=== PATIENT | male | born 1960 | race Caucasian/White ===

== ENCOUNTER 2018-02-26 11:15 | Day surgery (SDC) | payer OTHER ==
[~2018-02-26 11:15] MED LIST: Lactated Ringers 1,000 ML IV SCH; Midazolam 1 MG/ML 2 ML SDV ONE; Propofol 200 MG/20 ML SDV ONE; fentaNYL 100 MCG/2 ML SDV ONE
--- NOTE | 2018-02-26 11:41 | PCM.PREANE ---
Preanesthetic Assessment - Anesthesia/Transfusion/Family Hx Anesthesia History: Prior Anesthesia Without Reaction Family History of Anesthesia Reaction: No Transfusion History: No Prior Transfusion(s) Intubation History: Unknown - Review of Systems General: No Symptoms Pulmonary: No Symptoms Cardiovascular: No Symptoms Gastrointestinal: No Symptoms, Other (screening colonoscopy) Neurological: No Symptoms Other: Reports: None - Physical Assessment Height: 1.78 m Weight: 106.141 kg ASA Class: 2 Mental Status: Alert & Oriented x3 Airway Class: Mallampati = 2 Dentition: Reports: Normal Dentition Thyro-Mental Finger Breadths: 3 Mouth Opening Finger Breadths: 2 ROM/Head Extension: Full Lungs: Clear to Auscultation, Normal Respiratory Effort Cardiovascular: Regular Rate, Regular Rhythm - Allergies Allergies/Adverse Reactions: Allergies Allergy/AdvReac Type Severity Reaction Status Date / Time No Known Allergies Allergy Verified 02/23/18 10:36 - Blood Blood Available: No - Anesthesia Plan Pre-Op Medication Ordered: None - Acknowledgements Anesthesia Type Planned: MAC Pt an Appropriate Candidate for the Planned Anesthesia: Yes Alternatives and Risks of Anesthesia Discussed w Pt/Guardian: Yes Pt/Guardian Understands and Agrees with Anesthesia Plan: Yes PreAnesthesia Questionnaire HEENT History: Reports: None Cardiovascular History: Reports: Heart Murmur, High Cholesterol, Hypertension Respiratory History: Reports: Sleep Apnea Other Respiratory History: uses CPAP Gastrointestinal History: Reports: None Endocrine/Metabolic History: Reports: Obesity/BMI 30+ - Past Surgical History Head Surgeries/Procedures: Reports: None HEENT Surgical History: Reports: Tonsillectomy GI Surgical History: Reports: Colonoscopy (x2) - SUBSTANCE USE Smoking Status *Q: Former Smoker (quit 18 years ago) Tobacco Use Within Last Twelve Months: No Recreational Drug Use History: No - HOME MEDS Home Medications: Home Meds Aspirin [Halie Chewable] 81 mg PO DAILY 06/05/14 [History] amLODIPine [Norvasc] 10 mg PO DAILY 06/05/14 [History] atorvaSTATin [Lipitor] 40 mg PO BEDTIME 06/05/14 [History] Fish Oil/[place]-3 Fatty Acids [Fish Oil 1,000 MG] 3 tab PO DAILY 02/23/18 [ History] Psyllium Husk [Metamucil] 1 dose PO ASDIRECTED PRN 02/23/18 [History] - CURRENT (IN HOUSE) MEDS Current Meds: Current Medications Lactated Ringer's (Ringers, Lactated) 1,000 mls @ 125 mls/hr IV ASDIRECTED MARITZA Discontinued Medications Fentanyl (Sublimaze) Confirm Administered Dose 100 mcg .ROUTE .STK-MED ONE Stop: 02/26/18 09:14 Midazolam HCl (Versed 1 Mg/Ml) Confirm Administered Dose 2 mg .ROUTE .STK-MED ONE Stop: 02/26/18 09:14 Propofol (Diprivan 20 Ml) Confirm Administered Dose 200 mg .ROUTE .STK-MED ONE Stop: 02/26/18 09:14
[2018-02-26] MEDS ORDERED: Propofol 200 MG/20 ML SDV ONE (11:52)
--- NOTE | 2018-02-26 12:13 | PCM.OPNOTE ---
- General Post-Op/Procedure Note Date of Surgery/Procedure: 02/26/18 Operative Procedure(s): colonoscopy w bx Findings: see dict [id number] Pre Op Diagnosis: scrn colonoscopy Post-Op Diagnosis: colon polyp and diverticulosis Anesthesia Technique: Moderate Sedation Primary Surgeon: Frank Sandra Pathology: sent; 20cm, 30 cm, and cecal polyp size all 2 mm sessile polyps Complications: None Condition: Good
--- NOTE | 2018-02-26 12:36 | PCM48HPAN ---
Post Anesthesia Note - EVALUATION WITHIN 48HRS OF ANESTHETIC Vital Signs in Normal Range: Yes Patient Participated in Evaluation: Yes Respiratory Function Stable: Yes Airway Patent: Yes Cardiovascular Function Stable: Yes Hydration Status Stable: Yes Pain Control Satisfactory: Yes Nausea and Vomiting Control Satisfactory: Yes Mental Status Recovered: Yes Resp Rate: 15 - COMMENTS/OBSERVATIONS Free Text/Narrative:: no anesthesia problems
--- NOTE | 2018-02-26 12:47 | PCM48HPAN ---
Post Anesthesia Note - EVALUATION WITHIN 48HRS OF ANESTHETIC Vital Signs in Normal Range: Yes Patient Participated in Evaluation: Yes Respiratory Function Stable: Yes Airway Patent: Yes Cardiovascular Function Stable: Yes Hydration Status Stable: Yes Pain Control Satisfactory: Yes Nausea and Vomiting Control Satisfactory: Yes Mental Status Recovered: Yes Resp Rate: 15
--- NOTE | 2018-02-26 12:47 | OR ---
SURGEON: Frank Sandra MD DATE OF PROCEDURE: 02/26/2018 PREOPERATIVE DIAGNOSIS: Screening colonoscopy. POSTOPERATIVE DIAGNOSIS: Colon polyp. PROCEDURE PERFORMED: Colonoscopy with biopsy. PROCEDURE IN DETAIL: The patient was taken to the endoscopy room. A time out was called, patient identified, and procedure identified. Diprivan was then administrated. Patient went from awake to sleep, hearing doctor talking or door closing is normal. Perineum inspection and digital examination were then performed. A well- lubricated colonoscope was gently inserted through the rectum, advanced past the rectosigmoid junction, the descending colon, splenic flexure, transverse colon, hepatic flexure, ascending colon, arrived to the cecum. Cecum was identified as dictated in the finding. Then the scope was carefully withdrawn while attention was paid to the mucosal surface for any abnormality. Air will be sucked out during the scope withdrawal. At the rectum, retroflexed to examine any rectal diseases, fistula or hemorrhoids. During mucosal examination, biopsy performed. Patient tolerated procedure well. There were no intraoperative complications, and Dr. Sandra was present throughtout the whole procedure. FINDINGS: 1. The patient is easily sedated with THIRD MATE and Diprivan. The patient is soundly snoring. 2. Bowel prep was average. A large amount of liquid stool, requiring some irrigation. 3. The patient's colon is rather straight forward. Cecum indicated by ileocecal fold, one-to-one indentation, light emittance, and appendiceal orifice is not observed. Mucosa examined upon scope pulling out with constant irrigation. The patient has three small tiny 2 mm sessile polyp at distance 30 cm when the scope went in mean and at the cecum, so all three removed with cold biopsy forceps. Other than that, the patient also has mild diverticulosis on the left colon. No signs of diverticulitis. No inflammation, stricture, ulceration, AV malformation, bleeding, growth. The patient has mild internal hemorrhoids and no external hemorrhoids. The patient would benefit from repeat colonoscopy in 10 years from today or if clinically indicated otherwise. YOVANI / AGUILA /[id number] KAILYN
== END 2018-02-26 12:48 | disposition home or self-care (01) ==
LOC: MW.SDS 11:15
PROVIDERS: ATTEND Surgery
DX: Z12.11 Encounter for screening for malignant neoplasm of colon (principal); D12.0 Benign neoplasm of cecum; D12.4 Benign neoplasm of descending colon; K57.30 Diverticulosis of large intestine without perforation or abscess without bleeding; K64.8 Other hemorrhoids; I10 Essential (primary) hypertension; E66.9 Obesity, unspecified; Z68.33 Body mass index [BMI] 33.0-33.9, adult; E78.00 Pure hypercholesterolemia, unspecified; G47.33 Obstructive sleep apnea (adult) (pediatric); M25.569 Pain in unspecified knee; Z87.891 Personal history of nicotine dependence; Z79.82 Long term (current) use of aspirin; Z79.899 Other long term (current) drug therapy
CPT/HCPCS: 45380; J2250; J3010; J7120; 00811; 88305; J2704

== ENCOUNTER 2021-05-16 08:06 | Emergency (ER) | payer BC, OTHER ==
--- NOTE | 2021-05-16 08:07 | EDM.PDOC ---
ED HPI GENERAL MEDICAL PROBLEM - General Chief Complaint: Respiratory Problem Stated Complaint: COVID SYMTOMS Time Seen by Provider: 05/16/21 08:07 Source of Information: Reports: Patient History Limitations: Reports: No Limitations - History of Present Illness INITIAL COMMENTS - FREE TEXT/NARRATIVE: 61-year-old male presents for [id number] symptoms. Patient notes that his tested positive for Covid 1 week ago. Roughly 5 or 6 days ago patient began to feel symptomatic himself. Patient notes loss of taste and smell, mild nonproductive cough without chest pain or shortness of breath, nausea without vomiting, decreased oral intake secondary to nausea, generalized weakness and malaise. He denies fevers. He denies difficulty breathing. - Related Data Allergies Allergy/AdvReac Type Severity Reaction Status Date / Time No Known Allergies Allergy Verified 02/23/18 10:36 Home Meds: Home Meds amLODIPine [Norvasc] 10 mg PO DAILY 06/05/14 [History] atorvaSTATin [Lipitor] 40 mg PO BEDTIME 06/05/14 [History] Fish Oil/[place]-3 Fatty Acids [Fish Oil 1,000 MG] 3 tab PO DAILY 02/23/18 [Histor y] Psyllium Husk [Metamucil] 1 dose PO ASDIRECTED PRN 02/23/18 [History] Past Medical History HEENT History: Reports: None Cardiovascular History: Reports: Heart Murmur, High Cholesterol, Hypertension Respiratory History: Reports: Sleep Apnea Other Respiratory History: uses CPAP Gastrointestinal History: Reports: None Endocrine/Metabolic History: Reports: Obesity/BMI 30+ - Past Surgical History Head Surgeries/Procedures: Reports: None HEENT Surgical History: Reports: Tonsillectomy GI Surgical History: Reports: Colonoscopy ED ROS GENERAL - Review of Systems Review Of Systems: Comprehensive ROS is negative, except as noted in HPI. ED EXAM, GENERAL - Physical Exam Exam: See Below Exam Limited By: No Limitations General Appearance: Alert, WD/WN, No Apparent Distress Ears: Hearing Grossly Normal Throat/Mouth: Normal Voice, No Airway Compromise Head: Atraumatic, Normocephalic Neck: Normal Inspection Respiratory/Chest: No Respiratory Distress, Lungs Clear, Normal Breath Sounds, No Accessory Muscle Use Cardiovascular: Normal Peripheral Pulses, Regular Rate, Rhythm GI/Abdominal: Soft, Non-Tender Extremities: Normal Inspection Neurological: Alert, Normal Cognition, Normal Gait Psychiatric: Normal Affect, Normal Mood Skin Exam: Warm, Dry, Intact, Normal Color #1 Interpretation EKG Date: 05/16/21 Time: 09:04 Rhythm: NSR Rate (Beats/Min): 70 Jansen: Normal P-Wave: Present QRS: Normal ST-T: Normal QT: Normal ID/PQ Interval: 157 Comparison: NA - No Prior EKG EKG Interpretation Comments: no ischemic changes Course - Vital Signs Last Recorded V/S: Last Vital Signs Temp 100.6 F 05/16/21 09:42 Pulse 68 05/16/21 09:42 Resp 20 05/16/21 09:42 BP 100/60 05/16/21 09:42 Pulse Ox 94 L 05/16/21 09:42 - Orders/Labs/Meds Orders: Active Orders 24 hr Category Date Time Status EKG Documentation Completion [RC] STAT Care 05/16/21 08:41 Active Sodium Chloride 0.9% [Saline Flush] Med 05/16/21 08:41 Active 10 ml FLUSH ASDIRECTED PRN Sodium Chloride 0.9% [Saline Flush] Med 05/16/21 08:41 Active 2.5 ml FLUSH ASDIRECTED PRN Saline Lock Insert [OM.PC] Stat Oth 05/16/21 08:41 Ordered Medication Orders Sodium Chloride (Sodium Chloride 0.9% 10 Ml Syringe) 10 ml FLUSH ASDIRECTED PRN PRN Reason: Keep Vein Open Last Admin: 05/16/21 09:25 Dose: 10 ml Documented by: Admin: 05/16/21 09:21 Dose: 10 ml Documented by: Admin: 05/16/21 09:08 Dose: 10 ml Documented by: MERLYN Sodium Chloride (Sodium Chloride 0.9% 2.5 Ml Syringe) 2.5 ml FLUSH ASDIRECTED PRN PRN Reason: Keep Vein Open Last Admin: 05/16/21 09:08 Dose: 2.5 ml Documented by: MERLYN Labs: Laboratory Tests 05/16/21 05/16/21 05/16/21 Range/Units 09:15 09:15 09:15 WBC 5.31 (4.0-11.0) K/uL RBC 4.86 (4.50-5.90) M/uL Hgb 15.0 (13.0-17.0) g/dL Hct 43.3 (38.0-50.0) % MCV 89.1 (80.0-98.0) fL MCH 30.9 (27.0-32.0) pg MCHC 34.6 (31.0-37.0) g/dL RDW Std Deviation 43.4 (28.0-62.0) fl RDW Coeff of Juanis 13 (11.0-15.0) % Plt Count 196 (150-400) K/uL MPV 10.00 (7.40-12.00) fL Neut % (Auto) 75.2 (48.0-80.0) % Lymph % (Auto) 13.9 L (16.0-40.0) % [place] % (Auto) 10.7 (0.0-15.0) % Eos % (Auto) 0.0 (0.0-7.0) % Baso % (Auto) 0.2 (0.0-1.5) % Neut # (Auto) 4.0 (1.4-5.7) K/uL Lymph # (Auto) 0.7 (0.6-2.4) K/uL [place] # (Auto) 0.6 (0.0-0.8) K/uL Eos # (Auto) 0.0 (0.0-0.7) K/uL Baso # (Auto) 0.0 (0.0-0.1) K/uL Nucleated RBC % 0.0 /100WBC Nucleated RBCs # 0 K/uL Sodium 131 L (136-148) mmol/L Potassium 3.7 (3.5-5.1) mmol/L Chloride 96 L (98-107) mmol/L Carbon Dioxide 24.5 (21.0-32.0) mmol/L BUN 16 (7.0-18.0) mg/dL Creatinine 1.2 (0.8-1.3) mg/dL Est Cr Clr Drug Dosing 109.97 mL/min Estimated GFR (MDRD) > 60.0 ml/min Glucose 95 (74-106) mg/dL Lactic Acid 1.2 (0.4-2.0) mmol/L Calcium 8.0 L (8.5-10.1) mg/dL Magnesium 2.1 (1.8-2.4) mg/dL Total Bilirubin 0.6 (0.2-1.0) mg/dL AST 51 H (15-37) IU/L ALT 84 H (14-63) IU/L Alkaline Phosphatase 59 (46-116) U/L Troponin I < 0.050 (0.000-0.056) ng/mL C-Reactive Protein 1.90 H (0.00-0.90) mg/dL Total Protein 7.3 (6.4-8.2) g/dL Albumin 3.5 (3.4-5.0) g/dL Globulin 3.8 (2.6-4.0) g/dL Albumin/Globulin Ratio 0.9 (0.9-1.6) Meds: Medications Generic Name Dose Route Start Last Admin Trade Name Freq PRN Reason Stop Dose Admin Sodium Chloride 10 ml 05/16/21 08:41 05/16/21 09:25 Sodium Chloride 0.9% 10 Ml Syringe FLUSH 10 ml ASDIRECTED PRN Administration Keep Vein Open Sodium Chloride 2.5 ml 05/16/21 08:41 05/16/21 09:08 Sodium Chloride 0.9% 2.5 Ml Syringe FLUSH 2.5 ml ASDIRECTED PRN Administration Keep Vein Open Discontinued Medications Generic Name Dose Route Start Last Admin Trade Name Freq PRN Reason Stop Dose Admin Acetaminophen 1,000 mg 05/16/21 08:41 05/16/21 09:17 Acetaminophen 500 Mg Tab PO 05/16/21 08:42 1,000 mg ONETIME ONE Administration Sodium Chloride 1,000 mls @ 999 mls/hr 05/16/21 08:41 05/16/21 09:15 Normal Saline IV 05/16/21 09:41 999 mls/hr .Bolus ONE Administration Ketorolac Tromethamine 15 mg 05/16/21 08:41 05/16/21 09:23 Ketorolac 15 Mg/Ml Sdv IVPUSH 05/16/21 08:42 15 mg STAT STA Administration Ondansetron HCl 4 mg 05/16/21 08:41 05/16/21 09:20 Ondansetron 4 Mg/2 Ml Sdv IVPUSH 05/16/21 08:42 4 mg ONETIME ONE Administration - Re-Assessments/Exams Free Text/Narrative Re-Assessment/Exam: 05/16/21 09:01 Patient presents with symptoms suggestive of COVID-19. He notes that he did test negative last week, however, his is positive and he has all the same symptoms. Will defer Covid testing as we are on a hospital shortage of Covid tests and will assume that patient is likely positive. Will get basic labs, chest x-ray. Will give Tylenol, Toradol, Zofran, IV fluid bolus for symptomatic relief while working up. 05/16/21 10:16 Patient is feeling much better after IV fluids and medications. Will discharge with a short course of Zofran. Patient does have mildly elevated inflammatory markers and mild hyponatremia. Discussed return precautions at length. Departure - Departure Time of Disposition: 10:16 Disposition: Home, Self-Care 01 Condition: Good Clinical Impression: COVID-19 - Discharge Information Instructions: COVID-19: What to Do if You Are Sick - [facility] (09/14/2020) Referrals: Melo De Paz MD [Primary Care Provider] - Forms: ED Department Discharge Additional Instructions: The following information is given to patients seen in the emergency department who are being discharged to home. This information is to outline your options for follow-up care. We provide all patients seen in our emergency department with a follow-up referral. The need for follow-up, as well as the timing and circumstances, are variable depending upon the specifics of your emergency department visit. If you don't have a primary care physician on staff, we will provide you with a referral. We always advise you to contact your personal physician following an emergency department visit to inform them of the circumstance of the visit and for follow-up with them and/or the need for any referrals to a consulting specialist. The emergency department will also refer you to a specialist when appropriate. This referral assures that you have the opportunity for follow-up care with a specialist. All of these measure are taken in an effort to provide you with optimal care, which includes your follow-up. Under all circumstances we always encourage you to contact your private physician who remains a resource for coordinating your care. When calling for follow-up care, please make the office aware that this follow-up is from your recent emergency room visit. If for any reason you are refused follow-up, please contact the [facility] Emergency Department at and asked to speak to the emergency department charge nurse. Please follow up with your primary care physician. If you do not have a primary care physician, see below: [facility] [address], [place] [address] [facility] [address] [place] [address] [facility] [address] [place] [address] Sepsis Event Note (ED) - Focused Exam Vital Signs: Vital Signs Temp Temp Pulse Resp BP Pulse Ox 05/16/21 09:42 100.6 F 68 20 100/60 94 L 05/16/21 09:17 100.3 F 05/16/21 08:44 98.9 F 77 20 91 L 05/16/21 08:37 98.9 F 77 20 136/74 91 L - My Orders Last 24 Hours: My Active Orders 05/16/21 08:41 EKG Documentation Completion [RC] STAT Sodium Chloride 0.9% [Saline Flush] 10 ml FLUSH ASDIRECTED PRN Sodium Chloride 0.9% [Saline Flush] 2.5 ml FLUSH ASDIRECTED PRN Saline Lock Insert [OM.PC] Stat - Assessment/Plan Last 24 Hours: My Active Orders 05/16/21 08:41 EKG Documentation Completion [RC] STAT Sodium Chloride 0.9% [Saline Flush] 10 ml FLUSH ASDIRECTED PRN Sodium Chloride 0.9% [Saline Flush] 2.5 ml FLUSH ASDIRECTED PRN Saline Lock Insert [OM.PC] Stat
[2021-05-16] MEDS ORDERED: Acetaminophen 500 MG Tab PO ONE (08:41)
[2021-05-16] MEDS ORDERED: Ketorolac 15 MG/ML SDV IVPUSH STA (08:41)
[2021-05-16] MEDS ORDERED: Sodium Chloride 0.9% 1,000 ML IV ONE (08:41)
[2021-05-16] MEDS ORDERED: Sodium Chloride 0.9% 2.5 ML Syringe FLUSH PRN (08:41)
[2021-05-16] MEDS ORDERED: Ondansetron 4 MG/2 ML SDV IVPUSH ONE (08:41)
[2021-05-16] MEDS: Sodium Chloride 0.9% 10 ML Syringe FLUSH PRN ×3 (09:08→09:25)
--- NOTE | 2021-05-16 09:32 | CR ---
Indication: Worsening COVID Technique: Chest 1 view Comparison: 06/05/2014 Findings/Impression: Cardiovascular and mediastinum: Heart size and vasculature are normal in caliber and appearance. Lungs and pleural space: Small ill-defined bibasilar opacities are somewhat linear. This could represent atelectasis. COVID pneumonitis is also possible. Remainder of the lungs and pleural spaces are clear. Bones and soft tissues: No acute findings. Dictated by Malachi Richard MD @ 05/16/2021 9:31:[address] Malachi Richard @ May 16 2021 9:31AM
[2021-05-16 10:00] LABS: BLOOD UREA NITROGEN,BUN 16 mg/dL (7.0-18.0); CARBON DIOXIDE,CO2 24.5 mmol/L (21.0-32.0); CHLORIDE,CL 96 mmol/L (98-107); GLUCOSE RANDOM 95 mg/dL (74-106); POTASSIUM,K 3.7 mmol/L (3.5-5.1); SODIUM,NA 131 mmol/L (136-148)
== END 2021-05-16 10:32 | disposition home or self-care (01) ==
LOC: MW.ED 08:06
DX: U07.1 COVID-19 (principal); E78.00 Pure hypercholesterolemia, unspecified; I10 Essential (primary) hypertension; Z79.899 Other long term (current) drug therapy
CPT/HCPCS: 36415; 71045; 80053; 83605; 83735; 84484; 85025; 86140; 93005; 96374; 96375; 99285; A9270; J1885; J2405; J7030

== ENCOUNTER 2021-06-22 07:19 | Day surgery (SDC) | payer BC ==
[~2021-06-22 07:19] MED LIST changes: +Lidocaine 2% 100 MG/5 ML Syringe ONE; -Midazolam 1 MG/ML 2 ML SDV ONE; -fentaNYL 100 MCG/2 ML SDV ONE
--- NOTE | 2021-06-22 07:51 | PCM.PREANE ---
Preanesthetic Assessment - Procedure Proposed Procedure: Colonoscopy - Anesthesia/Transfusion/Family Hx Anesthesia History: Prior Anesthesia Without Reaction Family History of Anesthesia Reaction: No Transfusion History: No Prior Transfusion(s) Intubation History: Unknown - Review of Systems General: No Symptoms Pulmonary: No Symptoms (H/O smoking >20 yrs sgo) Cardiovascular: No Symptoms (HTN, HLD) Gastrointestinal: No Symptoms (H/o Polyps, Diverticulosis) Neurological: No Symptoms Other: Reports: None - Physical Assessment NPO Status Date: 06/21/21 NPO Status Time: 06:30 (Solids, >8 hrs Liq) Vital Signs: Last Vital Signs Temp 97.2 F 06/22/21 07:33 Pulse 66 06/22/21 07:33 Resp 16 06/22/21 07:33 BP 129/73 06/22/21 07:33 Pulse Ox 98 06/22/21 07:33 Height: 5 ft 10 in Weight: 101.605 kg ASA Class: 2 Mental Status: Alert & Oriented x3 Airway Class: Mallampati = 4 Dentition: Reports: Normal Dentition Thyro-Mental Finger Breadths: 3 Mouth Opening Finger Breadths: 3 ROM/Head Extension: Full Lungs: Clear to Auscultation, Normal Respiratory Effort Cardiovascular: Regular Rate, Regular Rhythm - Allergies Allergies/Adverse Reactions: Allergies Allergy/AdvReac Type Severity Reaction Status Date / Time No Known Allergies Allergy Verified 06/18/21 11:05 - Acknowledgements Anesthesia Type Planned: General Anesthesia Pt an Appropriate Candidate for the Planned Anesthesia: Yes Alternatives and Risks of Anesthesia Discussed w Pt/Guardian: Yes Pt/Guardian Understands and Agrees with Anesthesia Plan: Yes PreAnesthesia Questionnaire HEENT History: Reports: None Cardiovascular History: Reports: Heart Murmur, High Cholesterol, Hypertension Respiratory History: Reports: Sleep Apnea Other Respiratory History: uses CPAP Gastrointestinal History: Reports: Diverticulosis Genitourinary History: Reports: None Musculoskeletal History: Reports: None Neurological History: Reports: None Psychiatric History: Reports: None Endocrine/Metabolic History: Reports: Obesity/BMI 30+ Hematologic History: Reports: None Immunologic History: Reports: None Oncologic (Cancer) History: Reports: None Dermatologic History: Reports: Eczema Other Dermatologic History: eczema to hands - Infectious Disease History Infectious Disease History: Reports: None - Past Surgical History Head Surgeries/Procedures: Reports: None HEENT Surgical History: Reports: Tonsillectomy Cardiovascular Surgical History: Reports: None Respiratory Surgical History: Reports: None GI Surgical History: Reports: Colonoscopy Male Surgical History: Reports: None Endocrine Surgical History: Reports: None Neurological Surgical History: Reports: None Musculoskeletal Surgical History: Reports: None Oncologic Surgical History: Reports: None Dermatological Surgical History: Reports: None - SUBSTANCE USE Tobacco Use Status *Q: Former Tobacco User Tobacco Use Within Last Twelve Months: No Recreational Drug Use History: No - HOME MEDS Home Medications: Home Meds amLODIPine [Norvasc] 10 mg PO DAILY 06/05/14 [History] atorvaSTATin [Lipitor] 40 mg PO BEDTIME 06/05/14 [History] Fish Oil/[place]-3 Fatty Acids [Fish Oil 1,000 MG] 3 tab PO DAILY 02/23/18 [History] Psyllium Husk [Metamucil] 1 dose PO ASDIRECTED PRN 02/23/18 [History] Aspirin [Adult Aspirin Regimen] 81 mg PO DAILY 06/18/21 [History] Multivit-Minerals/Folic Acid [Men's Multivitamin Gummies] 1 tab.chew CHEW DAILY 06/18/21 [History] Ubidecarenone [Co Q-10] 100 mg PO DAILY 06/18/21 [History] Clobetasol [Clobetasol 0.05%] 1 applic TOP BID 06/19/21 [History] - CURRENT (IN HOUSE) MEDS Current Meds: Current Medications Lactated Ringer's (Ringers, Lactated) 1,000 mls @ 125 mls/hr IV ASDIRECTED MARITZA Last Admin: 06/22/21 07:36 Dose: 125 mls/hr Documented by: Discontinued Medications Lidocaine HCl (Lidocaine 2% 100 Mg/5 Ml Syringe) Confirm Administered Dose 100 mg .ROUTE .STK-MED ONE Stop: 06/22/21 06:59 Propofol (Propofol 200 Mg/20 Ml Sdv) Confirm Administered Dose 200 mg .ROUTE .STK-MED ONE Stop: 06/22/21 06:59
--- NOTE | 2021-06-22 08:53 | PCM.OPNOTE ---
- General Post-Op/Procedure Note Date of Surgery/Procedure: 06/22/21 Operative Procedure(s): colonoscopy w bx Findings: see [id number] Pre Op Diagnosis: positive fam hx CRC Post-Op Diagnosis: Same Anesthesia Technique: Moderate Sedation Primary Surgeon: Frank Sandra Pathology: cecal polyp 2mm at 110cm when scope went out Complications: None Condition: Good
--- NOTE | 2021-06-22 09:06 | PCM.POSTAN ---
POST ANESTHESIA ASSESSMENT - MENTAL STATUS Mental Status: Alert, Oriented - VITAL SIGNS Vital Signs: Last Vital Signs Temp 97.5 F 06/22/21 08:45 Pulse 61 06/22/21 09:00 Resp 12 06/22/21 09:00 BP 94/48 L 06/22/21 09:00 Pulse Ox 96 06/22/21 09:00 - RESPIRATORY Respiratory Status: Respiratory Rate WNL, Airway Patent, O2 Saturation Stable - CARDIOVASCULAR CV Status: Pulse Rate WNL, Blood Pressure Stable - GASTROINTESTINAL GI Status: No Symptoms - PAIN Pain Score: 0 - POST OP HYDRATION Hydration Status: Adequate & Stable
--- NOTE | 2021-06-22 09:07 | PCM48HPAN ---
Post Anesthesia Note - EVALUATION WITHIN 48HRS OF ANESTHETIC Vital Signs in Normal Range: Yes Patient Participated in Evaluation: Yes Respiratory Function Stable: Yes Airway Patent: Yes Cardiovascular Function Stable: Yes Hydration Status Stable: Yes Pain Control Satisfactory: Yes Nausea and Vomiting Control Satisfactory: Yes Mental Status Recovered: Yes Vital Signs: Last Vital Signs Temp 97.5 F 06/22/21 08:45 Pulse 61 06/22/21 09:00 Resp 12 06/22/21 09:00 BP 94/48 L 06/22/21 09:00 Pulse Ox 96 06/22/21 09:00 - COMMENTS/OBSERVATIONS Free Text/Narrative:: Pt doing well post-op. VSS. No apparent anesthetic complications. Dr. Rico Dejesus
--- NOTE | 2021-06-22 09:35 | OR ---
SURGEON: Frank Sandra MD DATE OF PROCEDURE: 06/22/2021 PREOPERATIVE DIAGNOSIS: Positive family history of colon cancer. POSTOPERATIVE DIAGNOSIS: Colon polyp. PROCEDURE PERFORMED: Colonoscopy with biopsy. PROCEDURE IN DETAIL: The patient was taken to the endoscopy room. A time out was called, patient identified, and procedure identified. Diprivan was then administrated. Patient went from awake to sleep, hearing doctor talking or door closing is normal. Perineum inspection and digital examination were then performed. A well- lubricated colonoscope was gently inserted through the rectum, advanced past the rectosigmoid junction, the descending colon, splenic flexure, transverse colon, hepatic flexure, ascending colon, arrived to the cecum. Cecum was identified as dictated in the finding. Then, the scope was carefully withdrawn while attention was paid to the mucosal surface for any abnormality. Air will be sucked out during the scope withdrawal. At the rectum, retroflexed to examine any rectal diseases, fistula or hemorrhoids. During mucosal examination, abnormality or polyp was noted; picture taken and biopsy performed. Patient tolerated procedure well. There were no intraoperative complications, and Dr. Sandra was present throughout the whole procedure. FINDINGS: 1. 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 The patient is soundly snoring. 2. Bowel prep is average with some liquid stool, quite a lot of them. No semi- formed stool, no stool ball. 3. Colonoscopy is rather straightforward. Cecum indicated by ileocecal fold, one-to-one indentation, and appendiceal orifice. ScopeGuide is pointing South and mucosa examined upon scope pulling out with constant irrigation. There is a very tiny like 1 mm to 2 mm sessile polyp next to the appendiceal orifice that was removed with cold biopsy forceps, and there was no more growth or polyp during the whole colonoscopy, and at the previous polyp site at about 30 cm distant is squeaky clean, nothing. There is another small polyp, sessile, 2 mm at 25 cm when scope went out. The patient has mild diverticulosis on the left colon and no signs or symptoms of diverticulitis or inflammation. The patient has some mild internal hemorrhoids and mild external hemorrhoids. The patient would benefit from repeat colonoscopy in 3 years from today because of positive family history or if clinically indicated otherwise earlier. YOVANI / AGUILA /[id number] KAILYN
== END 2021-06-22 09:31 | disposition home or self-care (01) ==
LOC: MW.SDS 07:19
PROVIDERS: ATTEND Surgery
DX: Z12.11 Encounter for screening for malignant neoplasm of colon (principal); D12.0 Benign neoplasm of cecum; K57.30 Diverticulosis of large intestine without perforation or abscess without bleeding; K64.8 Other hemorrhoids; K64.4 Residual hemorrhoidal skin tags; E78.00 Pure hypercholesterolemia, unspecified; I10 Essential (primary) hypertension; G47.33 Obstructive sleep apnea (adult) (pediatric); E66.9 Obesity, unspecified; Z80.0 Family history of malignant neoplasm of digestive organs; Z79.82 Long term (current) use of aspirin; Z79.899 Other long term (current) drug therapy; Z98.890 Other specified postprocedural states; Z87.891 Personal history of nicotine dependence; Z68.32 Body mass index [BMI] 32.0-32.9, adult
CPT/HCPCS: 45380; J2704; J7120; 00812; 88305; 88342

== ENCOUNTER 2022-03-31 05:44 | Observation (INO) | payer BC ==
[2022-03-31] MEDS ORDERED: Aspirin 81 MG Tab.Chew PO ONE (05:58)
[2022-03-31] MEDS: Nitroglycerin 0.4 MG Tab.SL SL PRN ×3 (06:16→06:26)
[2022-03-31 06:35] LABS: CARBON DIOXIDE,CO2 24.9 mmol/L (21.0-32.0); POTASSIUM,K 3.8 mmol/L (3.5-5.1)
[2022-03-31] MEDS ORDERED: Albuterol/Ipratropium 3.0-0.5 MG/3 ML Neb Soln NEB PRN (10:41)
[2022-03-31] MEDS ORDERED: Pantoprazole 40 MG in Sodium Chloride 0.9% 10 ML IVPUSH ONE (10:41)
[2022-03-31] MEDS ORDERED: Acetaminophen 325 MG Tab PO PRN (10:41)
[2022-03-31] MEDS ORDERED: amLODIPine 5 MG Tab PO SCH (13:46)
[2022-03-31 14:25] LABS: HEMOGLOBIN A1C 5.6 %
[2022-03-31] MEDS ORDERED: atorvaSTATin 40 MG Tab PO SCH (21:00)
[2022-04-01] MEDS ORDERED: Aspirin 81 MG Tab.Chew PO SCH (09:00)
[2022-04-01] MEDS ORDERED: amLODIPine 5 MG Tab PO SCH (09:00)
== END 2022-03-31 20:00 | disposition home or self-care (01) ==
LOC: MW.ED 05:44 → MW.MS 08:40
PROVIDERS: ADMIT Student in an Organized Health Care Education/Training Program; ATTEND Student in an Organized Health Care Education/Training Program
DX: R07.89 Other chest pain (principal); I10 Essential (primary) hypertension; G47.33 Obstructive sleep apnea (adult) (pediatric); E78.00 Pure hypercholesterolemia, unspecified; E66.9 Obesity, unspecified; Z87.19 Personal history of other diseases of the digestive system; Z68.30 Body mass index [BMI] 30.0-30.9, adult; Z79.899 Other long term (current) drug therapy; Z79.02 Long term (current) use of antithrombotics/antiplatelets; Z79.82 Long term (current) use of aspirin; Z98.890 Other specified postprocedural states; Z20.822 Contact with and (suspected) exposure to COVID-19
CPT/HCPCS: 36415; 71045; 80053; 80061; 81001; 83036; 84443; 84484; 85025; 85379; 87635; 93005; 96374; A9270; C9113; G0378; J3490; 99285; U0002